=== PATIENT | female | born 2000 | race Two or more races ===

== ENCOUNTER 2024-05-10 23:06 | Emergency (ER) | payer MEDICAID, OTHER ==
[~2024-05-10] VITALS: Ht 165.1 cm; Wt 140.7 kg
[2024-05-11] MEDS ORDERED: ALBUAER3 IN (03:30)
[2024-05-11] MEDS ORDERED: AZIT-43 PO (03:30)
[2024-05-11] MEDS ORDERED: PRED20TA2 PO (03:30)
[2024-05-11 03:38] VITALS: BP 139/87; PULSE 84; RESP 20; TEMP 98
[2024-05-11 04:20] VITALS: O2SAT 98
== END 2024-05-11 04:26 | disposition home or self-care (01) ==
LOC: ER 23:06
DX: J06.9 Acute upper respiratory infection, unspecified (principal); E66.01 Morbid (severe) obesity due to excess calories; Z68.43 Body mass index [BMI] 50.0-59.9, adult; Z98.890 Other specified postprocedural states
CPT/HCPCS: 71046